=== PATIENT | male | born 1985 | race Caucasian/White ===

== ENCOUNTER 2019-01-04 13:43 | Emergency (ER) | payer OTHER ==
[~2019-01-04] VITALS: Ht 160 cm; Wt 89.4 kg
[2019-01-04] MEDS ORDERED: PENICILLIN V P500 MG PO (14:09)
[2019-01-04 14:26] VITALS: BP 124/73
== END 2019-01-04 14:28 | disposition home or self-care (01) ==
LOC: ER 13:43
DX: K05.10 Chronic gingivitis, plaque induced (principal)